=== PATIENT | female | born 2000 | race Caucasian/White ===

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

== ENCOUNTER 2018-02-13 22:37 | Emergency (ER) | payer SELFPAY ==
[~2018-02-13] VITALS: Ht 160 cm; Wt 61.7 kg
[2018-02-13 22:49] VITALS: Ht 160 cm; Wt 61.7 kg
[2018-02-13 23:52] VITALS: BP 109/67
== END 2018-02-13 23:54 | disposition home or self-care (01) ==
LOC: ED 22:37
DX: M54.40 Lumbago with sciatica, unspecified side (principal)
CPT/HCPCS: J1885

== ENCOUNTER 2018-04-20 10:56 | Emergency (ER) | payer OTHER ==
[~2018-04-20] VITALS: Ht 160 cm; Wt 63.0 kg
[2018-04-20 10:58] VITALS: Ht 160 cm; Wt 63.0 kg
[2018-04-20 11:08] LABS: microscopic required? NO
[2018-04-20 11:26] LABS: BASOPHIL % 0.3 % (0-2); PLATELET COUNT 271 x10^3mcL (130-400); RED CELL DISTRIBUTION WIDTH 13.1 % (11.5-14.5)
[2018-04-20 11:38] LABS: UA SPECIFIC GRAVITY 1.025 (1.005-1.035); urine erythrocyte NEGATIVE (NEGATIVE)
[2018-04-20 11:45] LABS: CALCIUM 8.7 mg/dL (8.5-10.1); CARBON DIOXIDE 29.5 mmol/L (21-32); CHLORIDE SERUM 104 mmol/L (98-107); CREATININE SERUM 0.7 mg/dL (0.6-1.0); GFR1 > 60 mL/min; GLUCOSE SERUM 93 mg/dL (74-106); POTASSIUM SERUM 3.8 mmol/L (3.5-5.1); SODIUM SERUM 140 mmol/L (136-145)
[2018-04-20 11:49] LABS: ALBUMIN 3.8 g/dL (3.4-5.0); ALKALINE PHOSPHATASE 117 U/L (46-116); ALT/SGPT 40 U/L (14-59); AMYLASE 85 U/L (25-115); AST/SGOT 31 U/L (15-37); BILIRUBIN TOTAL 0.4 mg/dL (0.20-1.00); LIPASE 125 IU/L (73-393); TOTAL PROTEIN, SERUM 8.2 g/dL (6.4-8.2)
[2018-04-20 13:29] VITALS: BP 107/73
== END 2018-04-20 13:29 | disposition home or self-care (01) ==
LOC: ED 10:56
DX: B34.9 Viral infection, unspecified (principal); K52.9 Noninfective gastroenteritis and colitis, unspecified
CPT/HCPCS: J2405; J7030

== ENCOUNTER 2018-06-16 07:52 | Emergency (ER) | payer SELFPAY ==
[~2018-06-16] VITALS: Ht 160 cm; Wt 62.6 kg
[2018-06-16 07:58] VITALS: Ht 160 cm; Wt 62.6 kg
[2018-06-16 09:34] VITALS: BP 106/59
== END 2018-06-16 09:34 | disposition home or self-care (01) ==
LOC: ED 07:52
DX: G89.29 Other chronic pain (principal); M54.5 Low back pain; M51.06 Intervertebral disc disorders with myelopathy, lumbar region
CPT/HCPCS: J1100; J1885; J2270; Q0162